=== PATIENT | female | born 1990 | race Caucasian/White ===

== ENCOUNTER 2024-01-16 06:36 | Day surgery (SDC) | payer BC ==
[2024-01-16 06:55] LABS: HCG URINE TEST NEGATIVE (NEGATIVE)
[2024-01-16 06:57] VITALS: RESP 18
[2024-01-16] MEDS ORDERED: CEFAZOLIN 2 GM/100 ML NaCl 2 GM/100 ML IVPB IV ONE (06:58)
[2024-01-16] MEDS ORDERED: Lactated Ringers 1,000 ML IV ONE (06:59)
[2024-01-16] MEDS: Lactated Ringers 1,000 ML IV SCH (07:02)
[2024-01-16] MEDS: CEFAZOLIN 2 GM/100 ML NaCl 2 GM/100 ML IVPB IV SCH (07:03)
[2024-01-16] MEDS ORDERED: DIPRIVAN 200 MG/20 ML IV ONE (08:44)
[2024-01-16] MEDS ORDERED: Decadron 4 MG INJ ONE (08:44)
[2024-01-16] MEDS ORDERED: Xylocaine-Mpf 2% 5 Ml Vial ONE (08:44)
[2024-01-16] MEDS ORDERED: Zofran 4 MG/2 ML VIAL ONE (08:44)
[2024-01-16] MEDS ORDERED: SUBLIMAZE 100 MCG/2 ML ONE (08:44)
[2024-01-16] MEDS ORDERED: Quelicin Fliptop 200 MG/10 ML ONE (08:58)
[2024-01-16] MEDS ORDERED: ROBINUL ONE (09:17)
[2024-01-16] MEDS ORDERED: TORAdol 30 mg Injection ONE (09:47)
[2024-01-16 10:09] VITALS: TEMP 98; O2SAT 97
[2024-01-16 10:24] VITALS: BP 121/81; PULSE 79
--- NOTE | 2024-01-18 12:15 | ECHO ---
SURGERY DATE/TIME: 01/16/2024 [id number] PREOPERATIVE DIAGNOSIS: Menorrhagia. POSTOPERATIVE DIAGNOSIS: Menorrhagia. PROCEDURE: Hysteroscopy, dilation and curettage with endometrial ablation using NovaSure. SURGEON: Angelito Muir D.O. AUTOMATIC TOE LASTER: Elsi Huertas. ANESTHESIA: General. ESTIMATED BLOOD LOSS: Minimal. COMPLICATIONS: None. FINDINGS: The risks, benefits, indications, and alternatives of the procedure were reviewed with the patient prior to the procedure. Patient understood the risk of infection, bleeding, bowel injury, bladder injury, ureteral injury, uterine perforation, pelvic infection, thromboembolic disorder associated with the surgery and desires to have the surgery as a possible means to alleviate her current medical condition. DESCRIPTION OF PROCEDURE AND FINDINGS: At this point, patient was taken to the operating room, given general sedation, placed in the dorsal lithotomy position, prepped and draped in the usual sterile fashion. A weighted speculum was then placed in the patient's vagina, and the anterior lip of the cervix was grasped with a single-tooth tenaculum. Endocervical dilators were advanced through the endocervical canal as a means to dilate the cervix and the uterus was sounded to approximately 8 cm. From this point, a 5 mm hysteroscope was then placed into the fundus of the uterus where visualization appeared to be within normal limits and no gross abnormalities were noted within the endometrial lining. From this point, the hysteroscope was removed, and a curette was then placed into the fundus of the uterus and curettage was performed and all quadrants of the uterus were treated, retrieving a moderate amount of tissue. At this point, hemostasis was obtained. From this point, the curette was removed from the uterine cavity and the NovaSure was then placed through the endocervical region, toward the fundal region, retracted approximately 1 cm and the NovaSure was engaged with an in depth of 6.5 cm in length and an in depth width of 3.7 cm where the instrument was engaged and the ablative procedure was performed. It was done so in 39 seconds. After complete ablation, the instrument was disengaged and removed from the uterine cavity without complication. From this point, all other instruments were removed from the patient's vaginal region. The patient was then taken out of the dorsal lithotomy position, was taken out of anesthesia, was then taken to the recovery room in stable condition. All instruments and laps were accounted for x2.
== END 2024-01-16 10:25 | disposition home or self-care (01) ==
LOC: SDC 06:36
PROVIDERS: ATTEND Obstetrics & Gynecology
DX: N92.0 Excessive and frequent menstruation with regular cycle (principal)
CPT/HCPCS: 58558; 58563; 81025; J0330; J0690; J1100; J1885; J2405; J2704; J3010